=== PATIENT | female | born 1965 | race African-American/Black ===

== ENCOUNTER → 2017-02-03 | Outpatient (CLI) | payer OTHER ==
[~2017-02-03] MED LIST: ASPI81TA11 PO; ATOR40TA16 PO; BACL10TA PO; BLOOD GLUCOSE T1 TES T-DERMAL; CHRO1000; CLOP75TA PO; GABA300C5 PO; GABA600T PO; ISOS60TA PO; KETO60IN6 IM; LEVEMIR SQ; LISI20TA3 PO; MAGN250T11 PO; MAGN250T2 PO; METF1000 PO; METO50TA11 PO; RANI150T PO; ROBA750T PO; syringes SQ
[2017-02-03 09:43] LABS: HDL CHOLESTEROL 38.8 MG/DL (40.0-60.0); LDL CHOLESTEROL 112 MG/DL (0-99)
[2017-02-03 17:09] LABS: HEMOGLOBIN A1b 0.9 %; HEMOGLOBIN Ao 48.5 %; HEMOGLOBIN F 1.4 %; HEMOGLOBIN LA1C 1.7 %; HEMOGLOBIN P3 3.2 %
== END ==
LOC: CLAB 08:34
PROVIDERS: ATTEND Family Medicine
DX: E11.9 Type 2 diabetes mellitus without complications (principal); E78.5 Hyperlipidemia, unspecified; I10 Essential (primary) hypertension; E66.9 Obesity, unspecified; Z95.5 Presence of coronary angioplasty implant and graft
CPT/HCPCS: 36415; 80061; 83036

== ENCOUNTER 2017-04-11 19:22 | Observation (INO) | payer OTHER ==
[~2017-04-11] VITALS: Ht 167.6 cm; Wt 78.0 kg
[~2017-04-11 19:22] MED LIST changes: -CHRO1000; -GABA300C5 PO; -KETO60IN6 IM; -MAGN250T2 PO
[2017-04-11 19:24] VITALS: BP 177/81; PULSE 89; RESP 18; TEMP 98.9; O2SAT 97
--- NOTE | 2017-04-11 21:40 | RADRPT ---
EXAM DATE/TIME: 04/11/2017 21:05 [facility] COMPARISON: CHEST SINGLE AP, August 20, 2016, 14:44. INDICATIONS : Chest pain and nausea. MEDICAL HISTORY : Hypertension. Cardiovascular disease. SURGICAL HISTORY : Coronary artery stent. ENCOUNTER: Initial ACUITY: 3 days PAIN SCORE: 8/10 LOCATION: Bilateral chest FINDINGS: Single AP view of the chest. The lungs are clear. Cardiomediastinal silhouette within normal limits. No evidence of pleural effusion or pneumothorax. CONCLUSION: No acute cardiopulmonary disease identified. Lio Spring MD on April 11, 2017 at 21:37 Board Certified Radiologist. This report was verified electronically.
[2017-04-11] MEDS ORDERED: SODIUM CHLORIDE 0.9% FLUSH 10 ML FLUSH IVF PRN (23:00)
[2017-04-11 23:04] LABS: AUTOMATED NEUTROPHIL # 4.6 TH/MM3 (1.8-7.7); BASOPHIL % 0.6 % (0.0-2.0); EOSINOPHIL # 0.1 TH/MM3 (0-0.4); EOSINOPHIL % 1.4 % (0.0-4.0); HEMATOCRIT 34.3 % (35.0-46.0); HEMO FLAGS DIFF FINAL; LYMPH % 34.6 % (9.0-44.0); LYMPHOCYTE # 2.9 TH/MM3 (1.0-4.8); MEAN CELL VOLUME 81.8 FL (80.0-100.0); MEAN CORPUSCULAR HEMOGLOBIN 28.4 PG (27.0-34.0); MEAN CORPUSCULAR HGB CONC 34.8 % (32.0-36.0); MONO % 8.3 % (0.0-8.0); NEUT % 55.1 % (16.0-70.0); PLATELET COUNT 537 TH/MM3 (150-450); WHITE BLOOD COUNT 8.3 TH/MM3 (4.0-11.0)
[2017-04-11 23:10] VITALS: RESP 18; O2SAT 98
--- NOTE | 2017-04-11 23:12 | PD ---
HPI Chief Complaint: Chest Pain Time Seen by Provider: 22:51 Travel History International Travel<30 days: No Contact w/Intl Traveler<30days: No Traveled to known affect area: No History of Present Illness HPI Patient is a 51-year-old female with history of CAD with previous stenting to the LAD in July 2016, HTN, HLD, diabetes who presents emergency department with chest pain. She's had now 3 days of intermittent substernal chest pain. Today the pain radiated down the left arm with associated shortness of breath. She also feels slightly nauseated feeling within the epigastrium but no abdominal pain. Patient was evaluated with cardiac stress test in July 2016 approximately 2 weeks after her catheter that was negative. She has not had any evaluation since and does not see a telecommunications administrator regularly due to financial constraints. Her pain is mild at this time, no nausea, shortness of breath at the moment. PFSH Past Medical History Asthma: Yes Blood Disorders: No Heart Rhythm Problems: No Cancer: No Cardiac Catheterization: Yes (june 2016) Cardiovascular Problems: Yes High Cholesterol: No Chest Pain: Yes Congestive Heart Failure: No COPD: No Diabetes: Yes Diminished Hearing: No Endocrine: Yes Genitourinary: No Hypertension: Yes Musculoskeletal: No Neurologic: No Psychiatric: No Reproductive: No Respiratory: Yes Immunizations Current: Yes Sleep Apnea: No Thyroid Disease: No Menopausal: Yes Dilation and Curettage (D&C): Yes Tubal Ligation: Yes Past Surgical History Genitourinary Surgery: Yes (BLADDER ) Gynecologic Surgery: Yes (D&C) Tonsillectomy: Yes Other Surgery: Yes (RIGHT BREAST LUMP BENIGN) Social History Alcohol Use: No Tobacco Use: No (quit over 20 years) Substance Use: No Allergies-Medications (Allergen,Severity, Reaction): Coded Allergies: Latex (Verified Allergy, Intermediate, Rash, 04/11/17) Contrast Media (Verified Allergy, Mild, HIVES, 04/11/17) Sulfa (Verified Allergy, Mild, HIVES, 04/11/17) Uncoded Allergies: LAZARO (Allergy, Severe, 04/11/17) stainless steel (Allergy, Severe, Irritation, 07/30/16) Pt states she had a belly button piercing with stainless steel and it "ate through her skin". Reported Meds & Prescriptions Reported Meds & Active Scripts Active Baclofen 10 Mg Tab 10 Mg PO Q8HR PRN Gabapentin 600 Mg Tab 600 Mg PO TID Levemir Inj (Insulin Detemir) 1,000 unit/ 10 ML Vial 30 Units SQ HS Do not mix with any other Insulin. dispense 1 mt worth Metformin (Metformin HCl) 1,000 Mg Tab 1,000 Mg PO BIDPC With meals Robaxin (Methocarbamol) 750 Mg Tab 750 Mg PO Q4H Lisinopril-Hctz 20-25 Mg Tab 1 Tab PO DAILY Isosorbide Mononitrate ER (Isosorbide Mononitrate) 60 Mg Tab 60 Mg PO DAILY Metoprolol Succinate ER 24 HR (Metoprolol Succinate) 50 Mg Tab 50 Mg PO DAILY Blood Glucose Test Strips 1 Ritu Ritu 1 Box T-DERMAL TID [syringes] 1 Syringe SQ HS Ranitidine (Ranitidine HCl) 150 Mg Tab 150 Mg PO BID Atorvastatin (Atorvastatin Calcium) 40 Mg Tab 40 Mg PO EVERY OTHER DAY Reported Chromium Picolinate 1,000 Mcg Tab 2,000 Magnesium Oxide 250 Mg Tab 250 Mg PO DIRECTED Aspirin EC (Aspirin) 81 Mg Tabdr 81 Mg PO DAILY Clopidogrel (Clopidogrel Bisulfate) 75 Mg Tab 75 Mg PO DAILY Review of Systems Except as stated in HPI: all other systems reviewed are Neg Physical Exam Narrative GENERAL: Well-appearing female obese in no acute distress SKIN: Focused skin assessment warm/dry. HEAD: Normocephalic. EYES: No scleral icterus. No injection or drainage. ENT: No nasal bleeding or discharge. Mucous membranes pink and moist. NECK: CARDIOVASCULAR: Regular rate and rhythm. No murmur appreciated. RESPIRATORY: No accessory muscle use. Clear to auscultation. Breath sounds equal bilaterally. GASTROINTESTINAL: Abdomen soft, non-tender, nondistended. Morbidly obese MUSCULOSKELETAL: No obvious deformities. No edema. NEUROLOGICAL: Awake and alert. Motor grossly within normal limits. Normal speech. PSYCHIATRIC: Appropriate mood and affect; insight and judgment normal. Data Data Last Documented VS Vital Signs Date Time Temp Pulse Resp B/P Pulse Ox O2 Delivery O2 Flow Rate FiO2 04/11/17 23:10 77 18 04/11/17 23:10 98 Room Air 04/11/17 19:24 98.9 177/81 Orders Electrocardiogram (04/11/17 ) Basic Metabolic Panel (Bmp) (04/11/17 20:45) Ckmb (Isoenzyme) Profile (04/11/17 20:45) Complete Blood Count With Diff (04/11/17 20:45) Magnesium (Mg) (04/11/17 20:45) Prothrombin Time / Inr (Pt) (04/11/17 20:45) Act Partial Throm Time (Ptt) (04/11/17 20:45) Troponin I (04/11/17 20:45) Chest, Single Ap (04/11/17 20:45) Ecg Monitoring (04/11/17 22:51) Iv Access Insert/Monitor (04/11/17 22:51) Oximetry (04/11/17 22:51) Sodium Chloride 0.9% Flush (Ns Flush) (04/11/17 23:00) Aspirin Chew (Aspirin Chew) (04/11/17 23:15) Nitroglycerin Sl (Nitrostat Sl) (04/11/17 23:15) CKMB (04/11/17 22:30) CKMB% (04/11/17 22:30) Admit Order (Ed Use Only) (04/11/17 23:42) Labs Laboratory Tests Test 04/11/17 22:30 White Blood Count 8.3 TH/MM3 Red Blood Count 4.20 MIL/MM3 Hemoglobin 11.9 GM/DL Hematocrit 34.3 % Mean Corpuscular Volume 81.8 FL Mean Corpuscular Hemoglobin 28.4 PG Mean Corpuscular Hemoglobin 34.8 % Concent Red Cell Distribution Width 16.0 % Platelet Count 537 TH/MM3 Mean Platelet Volume 7.5 FL Neutrophils (%) (Auto) 55.1 % Lymphocytes (%) (Auto) 34.6 % Monocytes (%) (Auto) 8.3 % Eosinophils (%) (Auto) 1.4 % Basophils (%) (Auto) 0.6 % Neutrophils # (Auto) 4.6 TH/MM3 Lymphocytes # (Auto) 2.9 TH/MM3 Monocytes # (Auto) 0.7 TH/MM3 Eosinophils # (Auto) 0.1 TH/MM3 Basophils # (Auto) 0.0 TH/MM3 CBC Comment DIFF FINAL Differential Comment Prothrombin Time 9.7 SEC Prothromb Time International 0.9 RATIO Ratio Activated Partial 26.6 SEC Thromboplast Time Sodium Level 137 MEQ/L Potassium Level 4.4 MEQ/L Chloride Level 100 MEQ/L Carbon Dioxide Level 28.3 MEQ/L Anion Gap 9 MEQ/L Blood Urea Nitrogen 19 MG/DL Creatinine 1.20 MG/DL Estimat Glomerular Filtration 57 ML/MIN Rate Random Glucose 279 MG/DL Calcium Level 9.0 MG/DL Magnesium Level 1.8 MG/DL Total Creatine Kinase 111 U/L Creatine Kinase MB 0.8 NG/ML Troponin I LESS THAN 0.02 NG/ML MDM Medical Decision Making Medical Screen Exam Complete: Yes Emergency Medical Condition: Yes Medical Record Reviewed: Yes Differential Diagnosis 51-year-old female with history of obesity, CAD, HTN, HLD, DM here with 3 days of intermittent chest pain with shortness of breath and now radiation the left arm. Differential includes ACS, atypical chest pain, GERD, and less likely PE or dissection Narrative Course He should placed on monitor, IV established and blood obtained. A twelve-lead EKG shows sinus rhythm without notable ST or T-wave abnormalities and normal intervals. Patient given aspirin, nitroglycerin. Portal chest x-ray obtained that by my read shows no acute abnormalities. CBC, BMP, magnesium, CK-MB, troponin, coags obtained and unremarkable. Based on her risk factors patient will be admitted to chest pain center for serial enzymes, EKG and provocative testing. Diagnosis Primary Impression: Chest pain Qualified Code: R07.2 - Precordial pain Admitting Information Admitting Physician Requests: Amena Kruse MD Apr 11, 2017 23:12
[2017-04-11] MEDS ORDERED: ASPIRIN 81 MG CHEW TAB PO ONE (23:15)
[2017-04-11] MEDS: NITROGLYCERIN 0.4 MG SL 25 TABS/BTL SL SCH ×2 (23:15→23:20)
[2017-04-11] MEDS ORDERED: CHRO1000 (23:23)
[2017-04-11 23:27] LABS: ANION GAP 9 MEQ/L (5-15); BICARBONATE 28.3 MEQ/L (21.0-32.0); BLOOD UREA NITROGEN 19 MG/DL (7-18); CHLORIDE 100 MEQ/L (98-107); GLOMERULAR FILTRATION RATE 57 ML/MIN (>89); MAGNESIUM 1.8 MG/DL (1.5-2.5); POTASSIUM 4.4 MEQ/L (3.5-5.1); SODIUM (NA) 137 MEQ/L (136-145)
[2017-04-11 23:30] LABS: APTT (PATIENT) 26.6 SEC (24.3-30.1); INTERNATIONAL NORMALIZED RATIO 0.9 RATIO; PROTHROMBIN TIME - PATIENT 9.7 SEC (9.8-11.6)
[2017-04-11 23:31] LABS: CREATINE KINASE 111 U/L (26-192)
[2017-04-11 23:42] LABS: CKMB 0.8 NG/ML (0.5-3.6)
[2017-04-12] VITALS (7 sets, daily range): BP systolic 101–142; BP diastolic 65–84; PULSE 80–90; RESP 16–20; TEMP 97.4–99.5; O2SAT 95–100
[2017-04-12] MEDS ORDERED: SODIUM CHLORIDE 0.9% FLUSH 10 ML FLUSH IV FLUSH PRN
[2017-04-12 02:36] LABS: CREATINE KINASE 97 U/L (26-192)
[2017-04-12 04:40] LABS: CREATINE KINASE 89 U/L (26-192)
[2017-04-12] MEDS ORDERED: SODIUM CHLORIDE 0.9% FLUSH 10 ML FLUSH IV FLUSH SCH (09:00)
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
[2017-04-12] MEDS ORDERED: FAMOTIDINE 20 MG TAB PO SCH (09:45)
[2017-04-12] MEDS ORDERED: GLUCAGON 1 MG/ML VIAL OTHER PRN (09:45)
[2017-04-12] MEDS ORDERED: METOPROLOL SUCCINATE 50 MG EXTENDED RELEASE TAB PO SCH (09:45)
[2017-04-12] MEDS ORDERED: LISINOPRIL 20 MG TAB PO SCH (09:45)
[2017-04-12] MEDS ORDERED: DEXTROSE 50% IN WATER 50 ML VIAL(D50) IV PRN (09:45)
[2017-04-12] MEDS ORDERED: CLOPIDOGREL 75 MG TAB PO SCH (09:45)
[2017-04-12] MEDS ORDERED: HYDROCHLOROTHIAZIDE 25 MG TAB PO SCH (09:45)
[2017-04-12] MEDS ORDERED: ISOSORBIDE MONONITRATE 60 MG TAB PO SCH (09:45)
[2017-04-12] MEDS ORDERED: BACLOFEN 10 MG TAB PO PRN (09:45)
[2017-04-12] MEDS ORDERED: INSULIN ASPART SUPPLEMENTAL SCALE SQ SCH (11:00)
--- NOTE | 2017-04-12 11:28 | EKG ---
Date Performed: 04/12/2017 Time Performed: 01:41:58 PTAGE: 51 years EKG: Sinus rhythm POSSIBLE RIGHT VENTRICULAR CONDUCTION DELAY MILD ST-SEGMENT ELEVATION MAY BE DUE TO EARLY REPOLARIZA TION BORDERLINE ECG PREVIOUS TRACING : 04/11/2017 19.33 DOCTOR: Jeff Mayorga Interpretating Date/Time 04/12/2017 11:27:21
--- NOTE | 2017-04-12 11:30 | EKG ---
Date Performed: 04/12/2017 Time Performed: 04:20:13 PTAGE: 51 years EKG: Sinus rhythm POSSIBLE RIGHT VENTRICULAR CONDUCTION DELAY MILD ST-SEGMENT ELEVATION PRECORDIAL LEADS MAY BE DUE TO EARLY REPOLARIZATION BORDERLINE ECG PREVIOUS TRACING : 04/12/2017 01.41 DOCTOR: Jeff Mayorga Interpretating Date/Time 04/12/2017 11:29:06
[2017-04-12] MEDS ORDERED: REGADENOSON INJ 0.4 MG/5 ML SYR ONE (12:35)
[2017-04-12] MEDS ORDERED: GABAPENTIN 300 MG CAP PO SCH (13:00)
--- NOTE | 2017-04-12 13:23 | EKG ---
Date Performed: 04/11/2017 Time Performed: 19:33:52 PTAGE: 51 years EKG: Sinus rhythm POSSIBLE RIGHT VENTRICULAR CONDUCTION DELAY BORDERLINE ECG PREVIOUS TRACING : 08/20/2016 22.13 Compared to prior tracing no significant change DOCTOR: Sanjeev Arroyo Interpretating Date/Time 04/12/2017 13:21:26
--- NOTE | 2017-04-12 16:01 | RADRPT ---
EXAM DATE/TIME: 04/12/2017 11:21 [facility] COMPARISON: MYOCARDIAL PERF PHARM SPECT, GATED W/EF, August 21, 2016, 9:22. INDICATIONS : Substernal chest pain radiating to left arm with dyspnea and nausea. Angina. Coronary artery disease. DOSE: 27.1 mCi Tc99m Myoview at stress. 8.5 mCi Tc99m Myoview at rest. 0.4 mg Lexiscan STRESS SYMPTOMS: Chest pain and dyspnea. EJECTION FRACTION: 65% MEDICAL HISTORY : Hypertension. Diabetes mellitus type 2. Coronary artery disease. SURGICAL HISTORY : Coronary artery stent. Tubal ligation. Bladder. ENCOUNTER: Initial ACUITY: 1 day PAIN SCALE: 6/10 LOCATION: Substernal chest TECHNIQUE: The patient underwent pharmacologic stress with infusion of prescribed dose. Continuous ECG tracing was monitored during stress. Gated SPECT imaging was performed after stress and conventional SPECT i maging was performed at rest. The examination was performed on a SPECT/CT scanner, both attenuation and non-corrected datasets were reviewed. FINDINGS: DISTRIBUTION: The maximum perfused segment at stress is in the lateral wall. PERFUSION STUDY: The pattern of perfusion at stress is within normal limits. GATED STUDY: There is intact wall motion and thickening without hypokinetic or dyskinetic segments. CONCLUSION: Within normal limits. No stress-induced ischemia or abnormal wall motion. RISK CATEGORY: Low Ned Anne MD on April 12, 2017 at 15:56 Board Certified Radiologist. This report was verified electronically.
--- NOTE | 2017-04-12 16:41 | HHI.DCPOC ---
Discharge Care Plan Diagnosis: (1) Atypical chest pain (2) Hx of coronary artery disease (3) Hypertension (4) Diabetes mellitus (5) Hyperlipidemia Goals to Promote Your Health * To prevent worsening of your condition and complications * To maintain your health at the optimal level Directions to Meet Your Goals Take your medications as prescribed Follow your dietary instruction Follow activity as directed Keep your appointments as scheduled Take your immunizations and boosters as scheduled If your symptoms worsen call your PCP, if no PCP go to Urgent Care Center or Emergency Room Smoking is Dangerous to Your Health. Avoid second hand smoke Call the 24-hour hour crisis hotline for domestic abuse at Dariela Jean Apr 12, 2017 16:41
[2017-04-12] MEDS ORDERED: LEVEMIR SQ ×2 (17:40→18:25)
[2017-04-12] MEDS ORDERED: metFORMIN HCL 500 MG TAB PO SCH (18:00)
--- NOTE | 2017-04-13 11:56 | TR ---
Date Performed: 04/12/2017 Time Performed: 12:37:11 DOCTOR: Jeff Mayorga DRUG LIST: CLINICAL HISTORY: REASON FOR TEST: REASON FOR ENDING: OBSERVATION: CONCLUSION: Lexiscan stress test was performed under standard four minute protocol. Radionuclide was injected one minute prior to ending the test. Developed dyspnea and dizziness. No electrocardiog raphic abnormalities were present to suggest ischemia. Recovery was quick and uneventful with resolut ion of symptoms. Nuclear imaging and interpretation are pending. COMMENTS:
[2017-04-14] MEDS ORDERED: ATORVASTATIN 40 MG TAB PO SCH (09:00)
[2017-04-22] MEDS ORDERED: LEVEMIR SQ ×2 (14:28→14:33)
[2017-04-22] MEDS ORDERED: METO50TA11 PO (14:30)
[2017-04-22] MEDS ORDERED: ISOS60TA PO (14:31)
== END 2017-04-12 19:03 | disposition home or self-care (01) ==
LOC: NEPE 19:22 → NEDA 23:44 → NEPHCDU 04-12 01:03
PROVIDERS: ADMIT Internal Medicine Cardiovascular Disease; ATTEND Internal Medicine Cardiovascular Disease
DX: R07.9 Chest pain, unspecified (principal); E11.9 Type 2 diabetes mellitus without complications; I10 Essential (primary) hypertension; I25.10 Atherosclerotic heart disease of native coronary artery without angina pectoris; R06.02 Shortness of breath; M79.602 Pain in left arm; R11.0 Nausea; R06.00 Dyspnea, unspecified; I20.9 Angina pectoris, unspecified; K21.9 Gastro-esophageal reflux disease without esophagitis; E78.5 Hyperlipidemia, unspecified; J45.909 Unspecified asthma, uncomplicated; E66.9 Obesity, unspecified; Z95.5 Presence of coronary angioplasty implant and graft; Z87.891 Personal history of nicotine dependence; Z79.899 Other long term (current) drug therapy; Z79.82 Long term (current) use of aspirin; Z79.84 Long term (current) use of oral hypoglycemic drugs; Z79.02 Long term (current) use of antithrombotics/antiplatelets
CPT/HCPCS: 71010; 78452; 80048; 82550; 82552; 82948; 83735; 84484; 85025; 85610; 85730; 93005; 93017; 99285; A9502; G0378; J2785

== ENCOUNTER → 2017-07-02 | Outpatient (CLI) | payer OTHER ==
[~2017-07-02] MED LIST changes: +BIOT1CHW PO; +CHRO1000; +MULT-65 PO; +POTA8CAP PO
[2017-07-02 17:54] LABS: HEMOGLOBIN A1b 0.9 %; HEMOGLOBIN Ao 48.9 %; HEMOGLOBIN F 1.3 %; HEMOGLOBIN LA1C 1.5 %; HEMOGLOBIN P3 2.9 %
== END ==
LOC: CLAB 11:18
PROVIDERS: ATTEND Family Medicine
DX: E11.9 Type 2 diabetes mellitus without complications (principal); M54.9 Dorsalgia, unspecified
CPT/HCPCS: 36415; 83036

== ENCOUNTER 2017-09-08 09:22 | Emergency (ER) | payer MEDICAID, OTHER ==
[~2017-09-08 09:22] MED LIST changes: -ASPI81TA11 PO; +ASPI81TA23 PO; +METO1TAB9 PO; -METO50TA11 PO
[2017-09-08 09:26] VITALS: BP 146/87; PULSE 86; RESP 14; TEMP 98.4; O2SAT 98
--- NOTE | 2017-09-08 09:40 | PD ---
HPI Chief Complaint: Chest Pain Time Seen by Provider: 09:26 Travel History International Travel<30 days: No Contact w/Intl Traveler<30days: No Traveled to known affect area: No History of Present Illness HPI The patient is a 52-year-old [place] female who presents to the emergency department for chest pain. The patient states she developed chest pain last night while making the bed. The chest pain was substernal, nonradiating, described as dull and achy. The pain is worse with activity, alleviated at rest. She does complain of mild shortness of breath but denies any nausea, vomiting, or diaphoresis. The patient does have a history of hypertension, hyperlipidemia, and previous CAD with stent placement one year ago. 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 She does state she has had a normal stress test since the cardiac catheterization. She denies any significant recent exertional dyspnea. Symptoms are moderate, worse with exertion, slightly alleviated at rest. PFSH Past Medical History Asthma: Yes Blood Disorders: No Heart Rhythm Problems: No Cancer: No Cardiac Catheterization: Yes Cardiovascular Problems: Yes High Cholesterol: Yes Chest Pain: Yes Congestive Heart Failure: No COPD: No Diabetes: Yes Diminished Hearing: No Endocrine: Yes Genitourinary: No Hypertension: Yes Musculoskeletal: No Neurologic: No Psychiatric: No Reproductive: No Respiratory: Yes Immunizations Current: Yes Sleep Apnea: No Thyroid Disease: No Menopausal: Yes Dilation and Curettage (D&C): Yes Tubal Ligation: Yes Past Surgical History Coronary Artery Bypass Graft: No Genitourinary Surgery: Yes (BLADDER ) Gynecologic Surgery: Yes (D&C) Tonsillectomy: Yes Other Surgery: Yes (RIGHT BREAST LUMP BENIGN) Social History Alcohol Use: No Tobacco Use: No (quit over 20 years) Substance Use: No Allergies-Medications (Allergen,Severity, Reaction): Coded Allergies: latex (Unverified Allergy, Intermediate, Rash, 09/08/17) Sulfa (Sulfonamide Antibiotics) (Unverified Allergy, Mild, HIVES, 09/08/17 ) diatrizoate meglumine (Unverified Allergy, Mild, HIVES, 09/08/17) gadobenic acid (Unverified Allergy, Mild, HIVES, 09/08/17) gadodiamide (Unverified Allergy, Mild, HIVES, 09/08/17) gadoteridol (Unverified Allergy, Mild, HIVES, 09/08/17) iodixanol (Unverified Allergy, Mild, HIVES, 09/08/17) iohexol (Unverified Allergy, Mild, HIVES, 09/08/17) Uncoded Allergies: stainless steel (Adverse Reaction, Severe, Irritation, 09/08/17) Pt states she had a belly button piercing with stainless steel and it "ate through her skin". LAZARO (Adverse Reaction, Mild, SKIN REACTION, 09/08/17) Reported Meds & Prescriptions Reported Meds & Active Scripts Active Gabapentin 600 Mg Tab 600 Mg PO TID Clopidogrel (Clopidogrel Bisulfate) 75 Mg Tab 75 Mg PO DAILY Metoprolol Succinate ER 24 HR (Metoprolol Succinate) 50 Mg Tab 50 Mg PO DAILY Levemir Inj (Insulin Detemir) 1,000 unit/ 10 ML Vial 80 Units SQ HS 30 Days Do not mix with any other Insulin. Atorvastatin (Atorvastatin Calcium) 40 Mg Tab 40 Mg PO EVERY OTHER DAY Isosorbide Mononitrate ER (Isosorbide Mononitrate) 60 Mg Tab 60 Mg PO DAILY Baclofen 10 Mg Tab 10 Mg PO Q8HR PRN Metformin (Metformin HCl) 1,000 Mg Tab 1,000 Mg PO BIDPC With meals Robaxin (Methocarbamol) 750 Mg Tab 750 Mg PO Q4H Lisinopril-Hctz 20-25 Mg Tab 1 Tab PO DAILY Blood Glucose Test Strips 1 Ritu Ritu 1 Box T-DERMAL TID [syringes] 1 Syringe SQ HS Ranitidine (Ranitidine HCl) 150 Mg Tab 150 Mg PO BID Reported Hair Skin & Nails (Biotin W/ Vitamins C & E) 1,250-7.5-7.5 Mcg-Mg-Unit Chew 2 Tab PO DAILY Multi-Vitamin Daily (Multiple Vitamin) 1 Tab Tab 1 Chew PO DAILY Potassium Chloride ER (Potassium Chloride) 8 Meq Cap 99 Meq PO DAILY Chromium Picolinate 1,000 Mcg Tab 2,000 Magnesium Oxide 250 Mg Tab 500 Mg PO DIRECTED Aspirin EC (Aspirin) 81 Mg Tabdr 81 Mg PO DAILY Review of Systems Except as stated in HPI: all other systems reviewed are Neg General / Constitutional: No: Fever HENT: No: Lightheadedness Cardiovascular: Positive: Chest Pain or Discomfort, Dyspnea on exertion Respiratory: Positive: Shortness of Breath Gastrointestinal: No: Nausea, Vomiting, Abdominal Pain Musculoskeletal: No: Weakness, Edema Neurologic: No: Dizziness Physical Exam Narrative GENERAL: Awake, alert, pleasant 42-year-old female who appears her stated age and is in no acute respiratory distress. SKIN: Focused skin assessment warm/dry. HEAD: Atraumatic. Normocephalic. EYES: Pupils equal and round. No scleral icterus. No injection or drainage. ENT: No nasal bleeding or discharge. Mucous membranes pink and moist. NECK: Trachea midline. No JVD. CARDIOVASCULAR: Regular rate and rhythm. No murmur appreciated. Palpation the chest wall does not reproduce symptoms. RESPIRATORY: No accessory muscle use. Clear to auscultation. Breath sounds equal bilaterally. GASTROINTESTINAL: Abdomen soft, non-tender, nondistended. No rebound tenderness. MUSCULOSKELETAL: No obvious deformities. No clubbing. No cyanosis. No edema. NEUROLOGICAL: Awake and alert. No obvious cranial nerve deficits. Motor grossly within normal limits. Normal speech. PSYCHIATRIC: Appropriate mood and affect; insight and judgment normal. Data Data Last Documented VS Vital Signs Date Time Temp Pulse Resp B/P (MAP) Pulse Ox O2 Delivery O2 Flow Rate FiO2 09/08/17 11:56 71 16 114/60 (78) 100 Room Air 09/08/17 10:17 98.8 Orders Orders Electrocardiogram (09/08/17 09:34) Ckmb (Isoenzyme) Profile (09/08/17 09:34) Complete Blood Count With Diff (09/08/17 09:34) Comprehensive Metabolic Panel (09/08/17 09:34) Magnesium (Mg) (09/08/17 09:34) Prothrombin Time / Inr (Pt) (09/08/17 09:34) Act Partial Throm Time (Ptt) (09/08/17 09:34) Troponin I (09/08/17 09:34) Chest, Single Ap (09/08/17 09:34) Ecg Monitoring (09/08/17 09:34) Bilateral Bp Monitoring (09/08/17 09:34) Iv Access Insert/Monitor (09/08/17 09:34) Oximetry (09/08/17 09:34) Oxygen Administration (09/08/17 09:34) Aspirin Chew (Aspirin Chew) (09/08/17 09:45) Nitroglycerin 2% Oint (Nitroglycerin 2% (09/08/17 09:45) Sodium Chloride 0.9% Flush (Ns Flush) (09/08/17 09:45) Troponin I (09/08/17 13:00) Labs Laboratory Tests Test 09/08/17 09:55 09/08/17 13:05 White Blood Count 8.1 TH/MM3 Red Blood Count 4.30 MIL/MM3 Hemoglobin 12.3 GM/DL Hematocrit 35.5 % Mean Corpuscular Volume 82.7 FL Mean Corpuscular Hemoglobin 28.5 PG Mean Corpuscular Hemoglobin Concent 34.5 % Red Cell Distribution Width 16.3 % Platelet Count 530 TH/MM3 Mean Platelet Volume 6.9 FL Neutrophils (%) (Auto) 56.7 % Lymphocytes (%) (Auto) 34.6 % Monocytes (%) (Auto) 6.5 % Eosinophils (%) (Auto) 1.1 % Basophils (%) (Auto) 1.1 % Neutrophils # (Auto) 4.6 TH/MM3 Lymphocytes # (Auto) 2.8 TH/MM3 Monocytes # (Auto) 0.5 TH/MM3 Eosinophils # (Auto) 0.1 TH/MM3 Basophils # (Auto) 0.1 TH/MM3 CBC Comment DIFF FINAL Differential Comment Prothrombin Time 10.0 SEC Prothromb Time International Ratio 0.9 RATIO Activated Partial Thromboplast Time 24.9 SEC Blood Urea Nitrogen 17 MG/DL Creatinine 1.00 MG/DL Random Glucose 123 MG/DL Total Protein 8.0 GM/DL Albumin 3.4 GM/DL Calcium Level 8.8 MG/DL Magnesium Level 1.8 MG/DL Alkaline Phosphatase 94 U/L Aspartate Amino Transf (AST/SGOT) 21 U/L Alanine Aminotransferase (ALT/SGPT) 35 U/L Total Bilirubin 0.2 MG/DL Sodium Level 138 MEQ/L Potassium Level 4.2 MEQ/L Chloride Level 103 MEQ/L Carbon Dioxide Level 25.8 MEQ/L Anion Gap 9 MEQ/L Estimat Glomerular Filtration Rate 70 ML/MIN Total Creatine Kinase 80 U/L Troponin I LESS THAN 0.02 NG/ML LESS THAN 0.02 NG/ML MDM Medical Decision Making Medical Screen Exam Complete: Yes Emergency Medical Condition: Yes Medical Record Reviewed: Yes Interpretation(s) EKG reveals normal sinus rhythm with a rate of 77. No ischemic changes or ectopy noted. Last Impressions Chest X-Ray 09/08/17 0934 Signed Impressions: Service Date/Time: Friday, September 08, 2017 09:50 - CONCLUSION: No acute disease. Adalberto Hyde MD FACR Laboratory Tests Test 09/08/17 09:55 09/08/17 13:05 White Blood Count 8.1 TH/MM3 Red Blood Count 4.30 MIL/MM3 Hemoglobin 12.3 GM/DL Hematocrit 35.5 % Mean Corpuscular Volume 82.7 FL Mean Corpuscular Hemoglobin 28.5 PG Mean Corpuscular Hemoglobin Concent 34.5 % Red Cell Distribution Width 16.3 % Platelet Count 530 TH/MM3 Mean Platelet Volume 6.9 FL Neutrophils (%) (Auto) 56.7 % Lymphocytes (%) (Auto) 34.6 % Monocytes (%) (Auto) 6.5 % Eosinophils (%) (Auto) 1.1 % Basophils (%) (Auto) 1.1 % Neutrophils # (Auto) 4.6 TH/MM3 Lymphocytes # (Auto) 2.8 TH/MM3 Monocytes # (Auto) 0.5 TH/MM3 Eosinophils # (Auto) 0.1 TH/MM3 Basophils # (Auto) 0.1 TH/MM3 CBC Comment DIFF FINAL Differential Comment Prothrombin Time 10.0 SEC Prothromb Time International Ratio 0.9 RATIO Activated Partial Thromboplast Time 24.9 SEC Blood Urea Nitrogen 17 MG/DL Creatinine 1.00 MG/DL Random Glucose 123 MG/DL Total Protein 8.0 GM/DL Albumin 3.4 GM/DL Calcium Level 8.8 MG/DL Magnesium Level 1.8 MG/DL Alkaline Phosphatase 94 U/L Aspartate Amino Transf (AST/SGOT) 21 U/L Alanine Aminotransferase (ALT/SGPT) 35 U/L Total Bilirubin 0.2 MG/DL Sodium Level 138 MEQ/L Potassium Level 4.2 MEQ/L Chloride Level 103 MEQ/L Carbon Dioxide Level 25.8 MEQ/L Anion Gap 9 MEQ/L Estimat Glomerular Filtration Rate 70 ML/MIN Total Creatine Kinase 80 U/L Troponin I LESS THAN 0.02 NG/ML LESS THAN 0.02 NG/ML Differential Diagnosis Differential diagnosis includes acute coronary syndrome, Prinzmetal angina, angina, esophageal spasm, GERD, deconditioning, cardiomyopathy. Narrative Course IV was established, labs are drawn and sent, and the patient was placed on cardiac telemetry monitoring and continuous pulse oximetry monitoring. EKG was ordered and interpreted. Chest x-rays obtained. The patient was administered aspirin and Nitropaste. I reviewed the patient's EMR, she did have a stent placed in the distal LAD on July 29, 2016. The stent was placed by Dr. Reyes. The patient then had a nuclear medicine myocardial perfusion scan performed on August 21, 2016 which was negative, low risk. The patient also had another negative nuclear medicine myocardial perfusion scan performed on April 12, 2017 which was low risk. Therefore, troponin and CPK were sent to lab. The patient's initial troponin is less than 0.02. The patient has had 2 negative nuclear medicine myocardial perfusion scan to the last year, therefore , a repeat 3 hour troponin level was ordered. The patient's second troponin was less than 0.03. The patient has had 2 previous nuclear medicine myocardial perfusion scans that have been negative since her stent was placed in 2015. She is stable for outpatient cardiology follow-up. Diagnosis Primary Impression: Atypical chest pain Patient Instructions: General Instructions Additional Instructions: Please provide the patient a copy of her chest x-ray results and lab results at discharge. Follow-up with your primary physician. Return if symptoms worsen or progress. Med/Other Pt SpecificInfo: No Change to Meds Disposition: 01 DISCHARGE HOME Condition: Stable Jones George MD Sep 08, 2017 09:40
[2017-09-08] MEDS ORDERED: SODIUM CHLORIDE 0.9% FLUSH 10 ML FLUSH IVF PRN (09:45)
[2017-09-08] MEDS ORDERED: ASPIRIN 81 MG CHEW TAB PO ONE (09:45)
[2017-09-08] MEDS ORDERED: NITROGLYCERIN 2% OINT 1 GM PACKET TOP ONE (09:45)
[2017-09-08 09:49] VITALS: RESP 20; O2SAT 100
[2017-09-08 10:08] LABS: AUTOMATED NEUTROPHIL # 4.6 TH/MM3 (1.8-7.7); BASOPHIL # 0.1 TH/MM3 (0-0.2); BASOPHIL % 1.1 % (0.0-2.0); EOSINOPHIL # 0.1 TH/MM3 (0-0.4); EOSINOPHIL % 1.1 % (0.0-4.0); HEMATOCRIT 35.5 % (35.0-46.0); HEMO FLAGS DIFF FINAL; LYMPH % 34.6 % (9.0-44.0); LYMPHOCYTE # 2.8 TH/MM3 (1.0-4.8); MEAN CELL VOLUME 82.7 FL (80.0-100.0); MEAN CORPUSCULAR HEMOGLOBIN 28.5 PG (27.0-34.0); MEAN CORPUSCULAR HGB CONC 34.5 % (32.0-36.0); MONO % 6.5 % (0.0-8.0); NEUT % 56.7 % (16.0-70.0); PLATELET COUNT 530 TH/MM3 (150-450); RED CELL DISTRIBUTION WIDTH 16.3 % (11.6-17.2); WHITE BLOOD COUNT 8.1 TH/MM3 (4.0-11.0)
[2017-09-08 10:15] LABS: APTT (PATIENT) 24.9 SEC (24.3-30.1); INTERNATIONAL NORMALIZED RATIO 0.9 RATIO
[2017-09-08 10:17] VITALS: BP 132/67; PULSE 74; RESP 17; TEMP 98.8; O2SAT 98
--- NOTE | 2017-09-08 10:20 | RADRPT ---
EXAM DATE/TIME: 09/08/2017 09:50 [facility] COMPARISON: CHEST SINGLE AP, April 11, 2017, 21:05. INDICATIONS : Midsternal to left chest pains x3 days. MEDICAL HISTORY : Myocardial infarction. SURGICAL HISTORY : Coronary artery stent. ENCOUNTER: Initial ACUITY: 3 days PAIN SCORE: 6/10 LOCATION: Left chest FINDINGS: A single view of the chest demonstrates the lungs to be symmetrically aerated without evidence of mas s, infiltrate or effusion. The cardiomediastinal contours are unremarkable. Osseous structures are intact. CONCLUSION: No acute disease. Adalberto Hyde MD FACR on September 08, 2017 at 10:18 Board Certified Radiologist. This report was verified electronically.
[2017-09-08 10:32] LABS: ANION GAP 9 MEQ/L (5-15); BICARBONATE 25.8 MEQ/L (21.0-32.0); BLOOD UREA NITROGEN 17 MG/DL (7-18); CHLORIDE 103 MEQ/L (98-107); MAGNESIUM 1.8 MG/DL (1.5-2.5); POTASSIUM 4.2 MEQ/L (3.5-5.1); SODIUM (NA) 138 MEQ/L (136-145)
[2017-09-08 10:38] LABS: ALKALINE PHOSPHATASE 94 U/L (45-117); ALT (GPT) 35 U/L (10-53); AST (GOT) 21 U/L (15-37); GLOMERULAR FILTRATION RATE 70 ML/MIN (>89); TOTAL BILIRUBIN ADULT 0.2 MG/DL (0.2-1.0)
[2017-09-08 11:20] LABS: CREATINE KINASE 80 U/L (26-192)
[2017-09-08 11:56] VITALS: BP 114/60; PULSE 71; RESP 16; O2SAT 100
--- NOTE | 2017-09-08 19:36 | EKG ---
Date Performed: 09/08/2017 Time Performed: 09:34:03 PTAGE: 52 years EKG: Sinus rhythm NORMAL ECG Since PREVIOUS TRACING , no significant change noted PREVIOUS TRACIN04/12/2017 04.20 DOCTOR: Jeana Velazquez Interpretating Date/Time 09/08/2017 19:35:08
== END 2017-09-08 15:47 | disposition home or self-care (01) ==
LOC: NEPE 09:22
DX: R07.89 Other chest pain (principal); I25.10 Atherosclerotic heart disease of native coronary artery without angina pectoris; Z95.5 Presence of coronary angioplasty implant and graft; I10 Essential (primary) hypertension
CPT/HCPCS: 71010; 80053; 82550; 83735; 84484; 85025; 85610; 85730; 93005; 99285

== ENCOUNTER 2017-11-03 14:09 | Emergency (ER) | payer MEDICAID ==
[2017-11-03 14:13] VITALS: BP 175/90; PULSE 101; RESP 14; TEMP 98.2; O2SAT 96
[2017-11-03 18:39] VITALS: BP 134/75; PULSE 87; RESP 18; O2SAT 97; O2SAT 98
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
[2017-11-03] MEDS ORDERED: SODIUM CHLORIDE 0.9% FLUSH 10 ML FLUSH IV FLUSH PRN (18:45)
--- NOTE | 2017-11-03 19:05 | RADRPT ---
EXAM DATE/TIME: 11/03/2017 18:46 [facility] COMPARISON: No previous studies available for comparison. INDICATIONS : Right hand numbness and general weakness today. RADIATION DOSE: 56.35 CTDIvol (mGy) MEDICAL HISTORY : Hypertension. Cardiovascular disease diabetes SURGICAL HISTORY : Hysterectomy. ENCOUNTER: Initial ACUITY: 1 day PAIN SCALE: 0/10 LOCATION: Bilateral head TECHNIQUE: Multiple contiguous axial images were obtained of the head. Using automated exposure control and adj ustment of the mA and/or kV according to patient size, radiation dose was kept as low as reasonably a chievable to obtain optimal diagnostic quality images. DICOM format image data is available electro nically for review and comparison. FINDINGS: CEREBRUM: The ventricles are normal for age. No evidence of midline shift, mass lesion, hemorrhage or acute in farction. No extra-axial fluid collections are seen. POSTERIOR FOSSA: The cerebellum and brainstem are intact. The 4th ventricle is midline. The cerebellopontine angle i s unremarkable. EXTRACRANIAL: The visualized portion of the orbits is intact. SKULL: The calvaria is intact. No evidence of skull fracture. CONCLUSION: Normal examination. Tim Archibald MD on November 03, 2017 at 19:02 Board Certified Radiologist. This report was verified electronically.
--- NOTE | 2017-11-03 19:13 | RADRPT ---
EXAM DATE/TIME: 11/03/2017 18:48 [facility] COMPARISON: No previous studies available for comparison. INDICATIONS : Right hand numbness and general weakness today. RADIATION DOSE: 40.72 CTDIvol (mGy) MEDICAL HISTORY : Hypertension. diabetes SURGICAL HISTORY : Hysterectomy. ENCOUNTER: Initial ACUITY: 1 day PAIN SCALE: 0/10 LOCATION: Bilateral head TECHNIQUE: Volumetric scanning of the cervical spine was performed. Multiplanar reconstructions in the sagittal, coronal and oblique axial planes were performed. Using automated exposure control and adjustment o f the mA and/or kV according to patient size, radiation dose was kept as low as reasonably achievable to obtain optimal diagnostic quality images. DICOM format image data is available electronically f or review and comparison. FINDINGS: VERTEBRAE: Normal vertebral body height. ALIGNMENT: No evidence of subluxation. C2-C3: The bony spinal canal is normal in size. No evidence of disc bulge or herniation. The neural forami na are bilaterally patent. C3-C4: The bony spinal canal is normal in size. No evidence of disc bulge or herniation. The neural forami na are bilaterally patent. C4-C5: The bony spinal canal is normal in size. No evidence of disc bulge or herniation. The neural forami na are bilaterally patent. C5-C6: The bony spinal canal is normal in size. No evidence of disc bulge or herniation. The neural forami na are bilaterally patent. C6-C7: The bony spinal canal is normal in size. No evidence of disc bulge or herniation. The neural forami na are bilaterally patent. C7-T1: The bony spinal canal is normal in size. No evidence of disc bulge or herniation. The neural forami na are bilaterally patent. CONCLUSION: Normal examination. Tim Archibald MD on November 03, 2017 at 19:10 Board Certified Radiologist. This report was verified electronically.
[2017-11-03 19:16] LABS: AUTOMATED NEUTROPHIL # 5.6 TH/MM3 (1.8-7.7); BASOPHIL # 0.1 TH/MM3 (0-0.2); BASOPHIL % 0.9 % (0.0-2.0); EOSINOPHIL # 0.1 TH/MM3 (0-0.4); EOSINOPHIL % 0.8 % (0.0-4.0); HEMATOCRIT 34.9 % (35.0-46.0); HEMOGLOBIN 12.2 GM/DL (11.6-15.3); LYMPHOCYTE # 3.9 TH/MM3 (1.0-4.8); MEAN CELL VOLUME 84.5 FL (80.0-100.0); MEAN CORPUSCULAR HEMOGLOBIN 29.6 PG (27.0-34.0); MEAN PLATELET VOLUME 7.3 FL (7.0-11.0); MONO % 5.7 % (0.0-8.0); MONOCYTE # 0.6 TH/MM3 (0-0.9); NEUT % 54.6 % (16.0-70.0); PLATELET COUNT 607 TH/MM3 (150-450); RED BLOOD COUNT 4.13 MIL/MM3 (4.00-5.30); RED CELL DISTRIBUTION WIDTH 16.2 % (11.6-17.2); WHITE BLOOD COUNT 10.3 TH/MM3 (4.0-11.0)
[2017-11-03 19:23] LABS: INTERNATIONAL NORMALIZED RATIO 0.9 RATIO; PROTHROMBIN TIME - PATIENT 9.5 SEC (9.8-11.6)
[2017-11-03 19:36] LABS: ALT (GPT) 37 U/L (10-53)
[2017-11-03 19:38] LABS: ALKALINE PHOSPHATASE 96 U/L (45-117); TOTAL BILIRUBIN ADULT 0.2 MG/DL (0.2-1.0); TOTAL PROTEIN 8.6 GM/DL (6.4-8.2)
[2017-11-03 19:39] LABS: ALBUMIN 3.5 GM/DL (3.4-5.0); AST (GOT) 23 U/L (15-37); BICARBONATE 26.7 MEQ/L (21.0-32.0); BLOOD UREA NITROGEN 17 MG/DL (7-18); CALCIUM 8.7 MG/DL (8.5-10.1); CHLORIDE 103 MEQ/L (98-107); CREATININE 1.21 MG/DL (0.50-1.00); GLOMERULAR FILTRATION RATE 56 ML/MIN (>89); GLUCOSE,RANDOM 162 MG/DL (74-106); SODIUM (NA) 138 MEQ/L (136-145)
== END 2017-11-03 20:05 | disposition home or self-care (01) ==
LOC: NEPD 14:09
DX: G56.21 Lesion of ulnar nerve, right upper limb (principal); R20.2 Paresthesia of skin; M54.5 Low back pain; G89.29 Other chronic pain; E11.9 Type 2 diabetes mellitus without complications; I10 Essential (primary) hypertension; E78.00 Pure hypercholesterolemia, unspecified; I25.10 Atherosclerotic heart disease of native coronary artery without angina pectoris; J45.909 Unspecified asthma, uncomplicated
CPT/HCPCS: 70450; 72125; 80053; 85025; 85610; 85730; 99285

== ENCOUNTER → 2017-12-08 | Outpatient (CLI) | payer MEDICAID ==
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
== END ==
LOC: HRAD 15:34
DX: M54.9 Dorsalgia, unspecified (principal)
CPT/HCPCS: 72070; 72100